=== PATIENT | female | born 2000 | race African-American/Black ===

== ENCOUNTER 2018-01-02 20:57 | Emergency (ER) | payer SELFPAY | END 2018-01-02 22:45 | disposition left against medical advice (07) | LOC: ER 20:57 | DX: R07.81 Pleurodynia (principal); I10 Essential (primary) hypertension | CPT/HCPCS: 99282 ==

== ENCOUNTER 2018-09-06 15:13 | Emergency (ER) | payer OTHER ==
[2018-01-02 21:33] VITALS: BP 147/89
== END 2018-09-06 16:05 | disposition left against medical advice (07) ==
LOC: ER 15:13
DX: J02.9 Acute pharyngitis, unspecified (principal); Z53.21 Procedure and treatment not carried out due to patient leaving prior to being seen by health care provider